=== PATIENT | female | born 1965 | race Caucasian/White ===

== ENCOUNTER → 2021-07-27 15:45 | Outpatient (CLI) | payer OTHER, SELFPAY ==
--- NOTE | 2021-07-27 16:03 | BI_ITS ---
MAMMOGRAPHY - BILATERAL SCREENING REASON FOR EXAM: Female, 55 years old. Routine annual screening examination. PERTINENT HISTORY: Non-contributory. TECHNIQUE: Digital bilateral breast cary (3D mammographic acquisition) in the CC and MLO projections. 2-D mediolateral oblique (MLO) and craniocaudad (CC) views of both breasts were obtained. CAD: Full Field Digital Mammography with Computer Added Detection was performed. COMPARISON: Comparison is made with prior examination dated 11/03/2014 and 05/31/2011. FINDINGS: Breast Composition: There are scattered areas of fibroglandular density. There is a 1.2 cm x 1 cm well-defined nodule in the slightly upper lateral anterior aspect of the left breast. Correlation with ultrasound is recommended. A tissue clip marker is seen within a 1.1 cm nodular density in the slightly inferior medial portion of the right breast. The nodular density has decreased in size as compared to prior study. No other significant abnormalities are identified. BI/SCRN MAMM (CAD)W/CARY BILAT IMPRESSION: New 1.2 cm x 1 cm well-defined nodule in the slightly upper lateral anterior aspect of the left breast. Correlation with ultrasound is recommended. A tissue clip marker is seen within the small nodule in the slightly inferior medial portion of the right breast. ASSESSMENT CATEGORY: BIRADS Category 0: Incomplete. Need additional imaging evaluation. A letter regarding these results will be sent to the patient by the facility within 30 days. Approximately 10% of breast cancers are not detected by mammography. A normal mammogram should not delay biopsy of a clinically suspicious abnormality. [id number] Electronically Signed: Saeid Greene MD at 8:57 EDT , Service support ,
== END ==
PROVIDERS: PCP Family Medicine; Referring Provider Family Medicine; Visit Provider Family Medicine
DX: Z12.31 Encounter for screening mammogram for malignant neoplasm of breast (principal)
CPT/HCPCS: 77063; 77067

== ENCOUNTER → 2021-08-01 07:59 | Outpatient (CLI) | payer OTHER, SELFPAY ==
--- NOTE | 2021-08-01 08:02 | US_ITS ---
STUDY: ULTRASOUND BREAST - LEFT REASON FOR EXAM: Female, 55 years old. Abnormal screening mammogram. TECHNIQUE: Axial and longitudinal images of the LEFT breast were performed with a high resolution ultrasound transducer. # OF IMAGES: 13 COMPARISON: Comparison is made with prior mammogram dated 07/27/2021. FINDINGS: LEFT Breast: The mammographic abnormality corresponds to a 1.3 cm x 1.3 cm x 0.7 cm slightly irregular hypoechoic solid nodule at the 1 o''clock position in the breast at 1 cm from nipple. A biopsy is recommended. US/Breast Limited Unilateral IMPRESSION: The mammographic abnormality corresponds to a 1.3 cm x 1.3 cm x 0.7 cm slightly irregular hypoechoic nodule at the 1 o''clock position of the breast at 1 cm from nipple. Biopsy recommended. ASSESSMENT CATEGORY: BIRADS Category 4: Suspicious - Biopsy Should Be Considered. A letter regarding these results will be sent to the patient by the facility within 30 days. Electronically Signed: Saeid Greene MD at 14:35 EDT , Service support ,
== END ==
PROVIDERS: PCP Family Medicine; Referring Provider Family Medicine; Visit Provider Family Medicine
DX: N63.20 Unspecified lump in the left breast, unspecified quadrant (principal)
CPT/HCPCS: 76642

== ENCOUNTER → 2021-08-13 | Outpatient (CLI) | payer OTHER, SELFPAY ==
--- NOTE | 2021-08-10 | IMM_PTH ---
PATIENT: LC BETTS LOC: [facility] U#:[id number] AGE/SX: 55/F ROOM: RE08/13/[address]: Dr. Natan Pina MD : 1965 BED: DIS: 08/13/2021 SPEC #: [id number] RECD: 08/14/21 12:25 STATUS: GURWINDER REQ #: [id number] ANCELMO: 08/10/21 00:[address]: Natan Pina DEPT: IMMUNOHISTOCHEMISTRY RECD BY: Shaista Irwin ENTERED: 08/14/21 12:26 SP TYPE: IMMUNO OTHR DR: Dr. Jennifer Pinto MD Tissues: Left breast, NOS Procedures: Calponin-1(initial) P40 (add) PHYSICIAN & INSTITUTION [facility] [id number] SPECIMEN INFORMATION: Tissue Source: Left breast Clinical Info: Abnormal left breast ultrasound Specimen Number: [id number] CPT code: 60193, 81361 METHODOLOGY: Deparaffinized sections of prefer/formalin-fixed tissue or PAP/DQ stained slides are incubated with monoclonal/polyclonal antibodies/oligonucleotide probes. Localization is made via biotin free immunoperoxidase method. Appropriate controls are performed and reacted as expected. Results on target cell population are indicated in the following table: RESULTS: ANTIBODY / CLONE RESULT P40 (BC28) positive Calponin-1 (SD144N) positive These tests were developed and their performance characteristics determined by [facility]. They may not have been cleared or approved by the [place]. Food and Drug Administration. The FDA has determined that such clearance or approval is not necessary. The above immunohistochemical/dualISH markers are ordered and reviewed by the Pathologist. INTERPRETATION: Left breast, core biopsy: Negative for malignancy. EBONI:nelly 08/14/2021
--- NOTE | 2021-08-10 15:58 | BRBX_PTH ---
PATIENT: LC BETTS LOC: [facility] U#:[id number] AGE/SX: 55/F ROOM: RE08/13/[address]: Dr. Natan Pina MD : 1965 BED: DIS: 08/13/2021 SPEC #: [id number] RECD: 08/10/21 16:46 STATUS: GURWINDER BARRERA #: [id number] ANCELMO: 08/10/21 15:[address]: Natan Pina DEPT: SURGICAL PATHOLOGY RECD BY: Neva Rouse ENTERED: 08/13/21 13:04 SP TYPE: BREAST BX OTHR DR: Dr. Jennifer Pinto MD Tissues: Left breast, NOS Procedures: Surgery Specimen Level IV HEADER OPERATION: Left breast biopsy PRE-OP DIAGNOSIS: Abnormal left breast ultrasound TISSUE SUBMITTED: Left breast tissue MICROSCOPIC DIAGNOSIS Left breast, core biopsy: Intraductal hyperplasia without atypia. Focal adenosis. Focal changes suggestive of fibroadenoma. Negative for malignancy. See comment. SJ:rg 08/14/2021 COMMENT Immunohistochemistry ([id number]) supports the above diagnosis. Correlation with clinical, radiologic findings and appropriate follow up are necessary. MICROSCOPIC DESCRIPTION Slides are reviewed. GROSS DESCRIPTION Received in fixative is one container labeled with the patient's name and designated left breast. The specimen consists of multiple elongated fragments of wells-yellow fibroadipose tissue that in aggregate measure 2 x 0.3 x 0.1 cm. The entire specimen is submitted in one cassette. / SJ:rg 08/13/2021 TC:5 CPT: 48608
== END | disposition home or self-care (01) ==
LOC: LABSPEC 12:54
PROVIDERS: PCP Family Medicine; Visit Provider Surgery
DX: N60.22 Fibroadenosis of left breast (principal)
CPT/HCPCS: 88305; 88341; 88342

== ENCOUNTER → 2022-03-11 | Outpatient (CLI) | payer OTHER, SELFPAY ==
--- NOTE | 2022-03-11 | CER_PTH ---
PATIENT: LC BETTS [facility][id number] AGE/SX: 56/F ROOM: RE03/11/[address]: ZENOBIA Lugo : 1965 BED: DIS: 03/11/2022 SPEC #: [id number] RECD: 03/11/22 13:34 STATUS: GURWINDER REEfren #: [id number] ANCELMO: 03/11/22 00:[address]: Bianca Abarca NP DEPT: SURGICAL PATHOLOGY RECD BY: Presley Malhotra ENTERED: 03/11/22 13:34 SP TYPE: CERV OTHR DR: Dr. Jennifer Pinto MD Tissues: Uterine cervix, NOS Procedures: Surgery Specimen Level IV HEADER OPERATION: Cervical polypectomy PRE-OP DIAGNOSIS: Cervical polyp TISSUE SUBMITTED: Cervical polyp MICROSCOPIC DIAGNOSIS Cervical polyp, biopsy: Fragments of benign endocervical/ectocervical polyp, inflamed. AM:nelly 03/12/2022 MICROSCOPIC DESCRIPTION Slides are reviewed. GROSS DESCRIPTION Received in fixative is one container labeled with the patient's name and designated cervical polyp. The specimen consists of a smooth, glistening polypoid fragment of wells tissue measuring 1.2 x 0.5 x 0.3 cm. The specimen is totally submitted in one cassette. / AM:nelly 03/11/2022 TC:1 CPT: 24618
[2022-03-15 16:13] LABS: HPV APTIMA, High Risk Negative (Negative)
== END | disposition home or self-care (01) ==
LOC: LABSPEC 12:38
PROVIDERS: PCP Family Medicine; Referring Provider Nurse Practitioner Women's Health; Visit Provider Nurse Practitioner Women's Health
DX: N84.1 Polyp of cervix uteri (principal)
CPT/HCPCS: 87624; 88175; 88305; G0145

== ENCOUNTER → 2023-09-25 | Outpatient (CLI) | payer OTHER, SELFPAY ==
--- NOTE | 2023-09-25 09:07 | BI_ITS ---
MAMMOGRAPHY - BILATERAL SCREENING REASON FOR EXAM: Female, 57 years old. Routine annual screening examination. PERTINENT HISTORY: Non-contributory. TECHNIQUE: Digital bilateral breast cary (3D mammographic acquisition) in the CC and MLO projections. 2-D mediolateral oblique (MLO) and craniocaudad (CC) views of both breasts were obtained. CAD: Full Field Digital Mammography with Computer Added Detection was performed. COMPARISON: Comparison is made with prior study dated July 27, 2021 degenerative 2014. FINDINGS: Breast Composition: There are scattered areas of fibroglandular density. There are no dominant masses or suspicious calcifications. A tissue clip marker is seen within a tiny nodule in the anterior upper lateral aspect of the left breast. The nodular density has decreased in size as compared to prior study. The nodule measures 4.2 mm. A tissue clip marker is also seen within a 1 cm nodular density in the slightly inferior medial portion of the right breast. No other significant abnormalities are identified. There has been no significant change since the prior study. BI/SCRN MAMM (CAD)W/CARY BILAT IMPRESSION: Stable bilateral screening mammogram. Yearly follow-up mammogram recommended. (A) ASSESSMENT CATEGORY: BIRADS Category 2: Benign. A letter regarding these results will be sent to the patient by the facility within 30 days. Approximately 10% of breast cancers are not detected by mammography. A normal mammogram should not delay biopsy of a clinically suspicious abnormality. [id number] Electronically Signed: Saeid Greene MD at 10:29 EST ,
== END | disposition home or self-care (01) ==
LOC: OPBI 09:07
PROVIDERS: PCP Family Medicine; Referring Provider Family Medicine; Visit Provider Family Medicine
DX: Z12.31 Encounter for screening mammogram for malignant neoplasm of breast (principal)
CPT/HCPCS: 77063; 77067

== ENCOUNTER 2024-09-22 17:00 | Outpatient (RCR) | payer OTHER, SELFPAY | END 2024-09-22 19:00 | disposition home or self-care (01) | LOC: PT 17:00 | PROVIDERS: PCP Family Medicine; Visit Provider Family Medicine | DX: M25.511 Pain in right shoulder (principal) | CPT/HCPCS: 97110; 97161; 97530 ==

== ENCOUNTER → 2024-09-28 | Outpatient (CLI) | payer OTHER, SELFPAY ==
--- NOTE | 2024-09-28 15:13 | BI_ITS ---
MAMMOGRAPHY - BILATERAL SCREENING REASON FOR EXAM: Female, 58 years old. Routine annual screening examination. PERTINENT HISTORY: Non-contributory. History of prior bilateral ultrasound-guided breast biopsies. TECHNIQUE: Digital bilateral breast cary (3D mammographic acquisition) in the CC and MLO projections. 2-D mediolateral oblique (MLO) and craniocaudad (CC) views of both breasts were obtained. CAD: Full Field Digital Mammography with Computer Added Detection was performed. COMPARISON: Comparison is made with prior study of September 25, 2023 and July 27, 2021. FINDINGS: Breast Composition: There are scattered areas of fibroglandular density. There are no dominant masses or suspicious calcifications. Once again, a tissue clip marker is seen within a tiny nodule in the anterior upper lateral aspect of the left breast. There is also evidence of a tissue clip marker within the 1 cm nodule in the slightly inferior medial portion of the right breast. No other significant abnormalities are identified. There has been no significant change since the prior study. BI/SCRN MAMM (CAD)W/CARY BILAT IMPRESSION: Stable bilateral screening mammogram. Yearly follow-up mammogram recommended. (A) ASSESSMENT CATEGORY: BIRADS Category 2: Benign. A letter regarding these results will be sent to the patient by the facility within 30 days. Approximately 10% of breast cancers are not detected by mammography. A normal mammogram should not delay biopsy of a clinically suspicious abnormality. [id number] Electronically Signed: Saeid Greene MD at 7:52 EST ,
== END | disposition home or self-care (01) ==
LOC: OPBI 15:13
PROVIDERS: PCP Family Medicine; Referring Provider Family Medicine; Visit Provider Family Medicine
DX: Z12.31 Encounter for screening mammogram for malignant neoplasm of breast (principal)
CPT/HCPCS: 77063; 77067

== ENCOUNTER → 2024-10-15 | Outpatient (CLI) | payer OTHER, SELFPAY ==
--- NOTE | 2024-10-15 10:14 | RAD_ITS ---
INDICATION: pain EXAMINATION/TECHNIQUE: X-RAY - RIGHT XR Shoulder Min 2 Views 5 VIEWS COMPARISON: No relevant prior comparison study available FINDINGS: SOFT TISSUES: No soft tissue swelling or gas. No radiopaque foreign body. BONES/JOINTS: No acute fracture or subluxation.. Normal alignment. Preservation of the joint space.. No sclerotic or destructive changes observed. RAD/Shoulder min 2 Views IMPRESSION: No evidence of acute fracture or dislocation. Electronically Signed: Richard Blanco MD at 13:05 EST ,
== END | disposition home or self-care (01) ==
LOC: MTRAD 10:14
PROVIDERS: PCP Family Medicine; Referring Provider Orthopaedic Surgery Sports Medicine; Visit Provider Orthopaedic Surgery Sports Medicine
DX: M25.511 Pain in right shoulder (principal)
CPT/HCPCS: 73030

== ENCOUNTER → 2024-11-05 | Outpatient (CLI) | payer OTHER, SELFPAY ==
--- NOTE | 2024-11-05 08:03 | MRI_ITS ---
STUDY: MRI RIGHT SHOULDER REASON FOR EXAM: Female, 59 years old. Pain and rule out cuff tears. TECHNIQUE: Standardized fat and water weighted pulse sequences were obtained in all 3 orthogonal planes. COMPARISON: Right shoulder radiographs dated 10/15/2024. FINDINGS: There is supraspinatus tendinosis with a 5 x 5 mm high-grade partial thickness articular surface tear of the anterior distal supraspinatus tendon insertion (coronal T2 series 6 images 15-16; sagittal T2 series 7 image 7). There is infraspinatus and subscapularis tendinosis. Normal teres minor tendon. Normal supraspinatus muscle. Normal infraspinatus muscle. Normal subscapularis muscle. Normal teres minor muscle. Normal glenohumeral articulation. Normal humeral head and visualized proximal humerus. Normal biceps labral complex. Normal intracapsular long biceps tendon. Normal labrum. Normal capsulo-ligamentous complex. Normal rotator interval. There is hypertrophic acromioclavicular arthrosis, with inferior osteophyte formation, with mild effacement of the supraspinatus myotendinous junction (coronal T2 series 6 image 16). There is a Type II morphology (curved), with a neutral orientation. There is trace subacromial-subdeltoid bursal fluid. Normal visualized coracohumeral and coracoacromial ligaments. Normal quadrilateral space. Normal axillary space. Normal deltoid muscle. Normal trapezius muscle. MRI/Upper Ext Joint Only(Routine) IMPRESSION: Supraspinatus tendinosis with a 5 x 5 mm high-grade partial thickness articular surface tear of the anterior distal supraspinatus tendon insertion. Infraspinatus and subscapularis tendinosis. Hypertrophic acromioclavicular arthrosis, with inferior osteophyte formation, with mild effacement of the supraspinatus myotendinous junction. Minimal subacromial-subdeltoid bursitis. Electronically Signed: Andrei Grove MD at 9:07 EST ,
== END | disposition home or self-care (01) ==
LOC: MRI 07:58
PROVIDERS: PCP Family Medicine; Referring Provider Orthopaedic Surgery Sports Medicine; Visit Provider Orthopaedic Surgery Sports Medicine
DX: M25.511 Pain in right shoulder (principal)
CPT/HCPCS: 73221